=== PATIENT | female | born 1960 | race Two or more races ===

== ENCOUNTER 2022-11-25 08:50 | Outpatient (CLI) | payer OTHER | END 2022-11-25 09:16 | disposition home or self-care (01) | LOC: MRI 08:50 | PROVIDERS: ATTEND Physical Medicine & Rehabilitation | DX: M54.59 Other low back pain (principal); M25.551 Pain in right hip; M25.552 Pain in left hip | CPT/HCPCS: 72148 ==

== ENCOUNTER 2022-11-30 11:30 | Outpatient (CLI) | payer OTHER | END 2022-11-30 11:45 | disposition home or self-care (01) | LOC: MAMO-SONO 11:30 | PROVIDERS: ATTEND Obstetrics & Gynecology Obstetrics | DX: Z12.31 Encounter for screening mammogram for malignant neoplasm of breast (principal); N64.0 Fissure and fistula of nipple; N63.0 Unspecified lump in unspecified breast ==

== ENCOUNTER 2022-11-30 13:50 | Outpatient (CLI) | payer OTHER | END 2022-11-30 13:54 | disposition home or self-care (01) | LOC: NUCLEAR 13:50 | PROVIDERS: ATTEND Obstetrics & Gynecology Obstetrics | DX: M81.0 Age-related osteoporosis without current pathological fracture (principal) ==